=== PATIENT | female | born 1975 | race Asian ===

== ENCOUNTER 2016-08-26 06:08 | Inpatient (IN) | payer OTHER ==
[2016-08-26] MEDS ORDERED: OXYTOCIN/RINGERS LACTATE 1,000 ML IV PRN (06:33)
[2016-08-26] MEDS ORDERED: LR 1,000 ML IV PRN (06:33)
[2016-08-26] MEDS ORDERED: LR 500 ML IV PRN (06:33)
[2016-08-26] MEDS ORDERED: TERBUTALINE SULFATE 1 MG/ML VIAL IV PRN (06:33)
[2016-08-26] MEDS ORDERED: OXYTOCIN/RINGERS LACTATE 500 ML IV SCH (07:00)
[2016-08-26 07:04] LABS: % IMMATURE GRANULYOCYTES 0.4 % (0.0-1.1); ABSOLUTE IMMATURE GRANULOCYTES 0.03 10^3/uL (0.00-0.10); ADD DIFF? NO; ADD MORPH? NO; ADD SCAN? NO; ATYPICAL LYMPHOCYTE FLAG 0 (0-99); FRAGMENT RBC FLAG 0 (0-99); HEMATOCRIT 38.2 % (38.0-47.0); LEFT SHIFT FLG 0 (0-99); LIPEMIA HEMOLYSIS FLAG 90 (0-99); MEAN CELL HEMOGLOBIN 31.2 pg (27.9-34.1); MEAN CELL VOLUME 91.6 fL (81.5-99.8); MEAN PLATELET VOLUME 11.9 fL (8.7-11.7); PLATELET CLUMPS FLAG 0 (0-99); PLATELET COUNT 183 10^3/uL (150-400); RED BLOOD CELL COUNT 4.17 10^6/uL (4.18-5.33); RED CELL DISTRIBUTION WIDTH 13.1 % (11.5-15.2)
--- NOTE | 2016-08-26 08:50 | OBPROG ---
OBG Progress Note Assessment/Plan: Assessment: 40 yo @ 38 weeks, IOL for A2GDM, doing well. Plan: 08/26/16 08:48 FWB reassuring. GBS neg. [id number] sugar 110 this am after light breakfast, will monitor and administer insulin as needed. Subjective: 40 yo @ 38 weeks, IOL for A2GDM, doing well. Objective: 08/26/16 06:25 Patient ABO/Rh O POSITIVE 08/26/16 06:25 110/64 88 16 36.9 Current Contraction Pattern: Irregular FHR (bpm): 130 FHR Pattern Variability: Moderate FHR Category: 2 ICD10 Worksheet Patient Problems: Problems Problem Status Onset demise, greater than 22 weeks, antepartum Acute
[2016-08-26] MEDS ORDERED: LIDOCAINE 1% 30 ML SDV ONE (10:03)
[2016-08-26] MEDS ORDERED: MISOPROSTOL 200 MCG TAB ONE (10:04)
[2016-08-26] MEDS ORDERED: AMMONIA AROMATIC 1 EACH AMP IH ONE ×2 (10:04→10:05)
[2016-08-26] MEDS ORDERED: TERBUTALINE SULFATE 1 MG/ML VIAL ONE (10:04)
[2016-08-26] MEDS ORDERED: OXYTOCIN 10 UNIT/ML VIAL ONE (10:04)
[2016-08-26] MEDS ORDERED: ceFAZolin 2 GM/DEXTROSE 100 ML IV ONE (12:58)
[2016-08-26] MEDS ORDERED: LR 500 ML IV ONE (12:58)
[2016-08-26] MEDS ORDERED: LR 1,000 ML IV SCH (13:00)
--- NOTE | 2016-08-26 13:07 | OBPROG ---
OBG Progress Note Assessment/Plan: Assessment: 40 yo @ 38 weeks, IOL for A2GDM, contractions more painful, fetus is breech. Plan: FWB reassuring. GBS neg. [id number] sugar 74 this am after light breakfast. Fetus was vtx last week, breech now (likely due to polyhydramnios), recommend delivery with the risks of bleeding, blood transfusion, infection, damage to the bowel, bladder, uterus, ovaries, blood vessels, nerves. Patient understands these risks and agrees to the procedure. Subjective: 40 yo @ 38 weeks, IOL for A2GDM, contractions more painful. Objective: 08/26/16 06:25 Patient ABO/Rh O POSITIVE 08/26/16 06:25 - SVE Dilation (cm): 1 (fetus very high station, not engaged in pelvis, US confirms breech) Effacement (%): 50 Station: -3 Current Contraction Pattern: Regular FHR (bpm): 130 ICD10 Worksheet Patient Problems: Problems Problem Status Onset Gestational diabetes mellitus (GDM) affecting second Acute demise, greater than 22 weeks, antepartum Acute
[2016-08-26] MEDS ORDERED: HYDROCODONE/APAP 5/325 TAB PO PRN (13:08)
[2016-08-26] MEDS ORDERED: PROMETHAZINE HCL 25 MG/ML INJ IVP PRN (13:08)
[2016-08-26] MEDS ORDERED: SIMETHICONE 80 MG TAB CHEW PO PRN (13:08)
[2016-08-26] MEDS ORDERED: morphINE PF 5 MG/10 ML INJ ONE (13:26)
[2016-08-26] MEDS ORDERED: fentaNYL 100 MCG/2 ML INJ ONE (13:27)
[2016-08-26] MEDS ORDERED: OXYTOCIN 100 UNITS/10 ML VIAL ONE (13:37)
[2016-08-26] MEDS ORDERED: ONDANSETRON 4 MG/2 ML VIAL ONE ×3 (13:37)
[2016-08-26] MEDS ORDERED: PHENYLEPHRINE HCL 100 MCG/ML SYR ONE ×3 (13:40→13:43)
--- NOTE | 2016-08-26 14:45 | OBPROC ---
- Delivery Pre-op Diagnoses: Breech presentation Post-op Diagnoses: variable presentation Procedure: Primary Surgeon: Sybil Thurman Children'S Aide: Kayla Gauthier Anesthesiologist: Juvencio Blair [employer] Fire Control Man/MANAGER INTEGRATION: Adri Edouard Anesthesia: Spinal Complications: None Specimen(s)/Path: Placenta IV Fluid (ml): 1,800 EBL: 800 - [place] Info A Delivery Date: 08/26/16 Delivery Time: 14:25 Sex of Infant: Female Score (1 Min): 8 Score (5 Min): 8
[2016-08-26] MEDS ORDERED: KETOROLAC 30 MG/1 ML SDV ONE (17:04)
[2016-08-26] MEDS: KETOROLAC 30 MG/1 ML SDV IVP SCH ×2 (17:06→23:00)
--- NOTE | 2016-08-26 19:09 | GOP ---
DATE OF OPERATION: 08/26/2016 SURGEON: Sybil Gr MD DAMPER WORKER: Kayla Gauthier CNM ANESTHESIA: Spinal. PREOPERATIVE DIAGNOSIS: 1. Breech presentation. 2. A2 gestational diabetes. POSTOPERATIVE DIAGNOSIS: 1. Vtx presentation. 2. A2 gestational diabetes. PROCEDURE PERFORMED: Primary low transverse section. FINDINGS: Viable female , Apgars 8 and 8 in vertex presentation. Copious amniotic fluid. Normal uterus, fallopian tubes, and ovaries. SPECIMENS: None. ESTIMATED BLOOD LOSS: 800 mL. INDICATIONS: The patient is a 40-year-old female who is being induced at 38 weeks' gestation for A2 gestational diabetes per [facility] recommendations, who was noted to be vertex last week; however, during the course of this labor, fetus was found to be in breech presentation during one of her cervical exams and recommended proceeding to delivery secondary to breech presentation to which patient agreed. By the time the uterine incision was made, this infant was back in vertex presentation, this was complicated by polyhydramnios. DESCRIPTION OF PROCEDURE: The patient was taken to the operating room where she was prepped and draped in normal sterile fashion in the dorsal supine position with a leftward tilt. A surgical time-out was performed, verifying the patient's name, date of , planned procedure, and site. The patient received 2 gm of Ancef preoperatively. A Pfannenstiel skin incision was made with a scalpel and carried through to the underlying fascia. The fascia was incised in the midline and extended laterally. The superior aspect of the fascia was grasped with Ever clamps. The rectus muscles were dissected off bluntly and with the Bovie cautery. The inferior aspect of the fascia was grasped with a Ever clamp. The rectus muscles were dissected off bluntly and with the Bovie cautery. The peritoneum was identified and entered in bluntly. The peritoneum was divided. The bladder blade was placed. The vesicouterine peritoneum was incised with the Metzenbaum scissors, and a bladder flap was created digitally. The bladder blade was replaced. The uterus was incised with a scalpel, and the uterine incision was extended laterally. The was delivered. The cord was clamped and cut. Cord blood was obtained. The was handed to the nurse practitioner. The placenta was delivered spontaneously. Uterus was exteriorized and cleared of all clots and debris. The uterine incision was reapproximated with 0 Monocryl in a running locked fashion in 2 layers. The uterus was returned to the abdomen. The gutters were cleared of all clots and debris. The uterine incision was reinspected and noted to be hemostatic. The subfascial spaces were inspected and noted to be hemostatic. The fascia was reapproximated with 0 Vicryl in a running fashion, and the skin was closed with a 4-0 Monocryl. All counts were correct x2. COMPLICATIONS: None. OUTCOME: Stable to recovery room. /[id number]/MODL MTDD
[2016-08-27] MEDS: KETOROLAC 30 MG/1 ML SDV IVP SCH ×2 (05:58→12:01)
--- NOTE | 2016-08-27 08:29 | SOAPPROG ---
SOAP Progress Note Assessment/Plan: Assessment: 40 yo s/p ltcs for variable presentation (breech during labor, vtx at time of c/s), pod 1, doing well. Plan: Routine postop care. Rubella immune, rh +, Continue synthroid, will check with inbound sales advisor for new dose. Home on Thursday. Objective: Vital Signs Temp Pulse Resp BP Pulse Ox 37.7 C 86 18 102/54 L 98 08/27/16 04:00 08/27/16 04:00 08/27/16 04:00 08/27/16 04:00 08/27/16 06:00 Laboratory Results 08/27/16 06:10 08/26/16 08/27/16 08/28/16 05:59 05:59 05:59 Intake Total 1000 Output Total 2200 350 Balance -2200 650 ICD10 Worksheet Patient Problems: Problems Problem Status Onset Breech presentation of fetus Acute Gestational diabetes mellitus (GDM) affecting second Acute demise, greater than 22 weeks, antepartum Acute
[2016-08-27] MEDS: DOCUSATE SODIUM 100 MG CAP PO PRN (09:41)
[2016-08-27] MEDS: OXYCODONE/APAP 5/325 TAB PO PRN ×3 (14:54→23:01)
[2016-08-27] MEDS: IBUPROFEN 600 MG TAB PO PRN (18:12)
[2016-08-27 20:59] VITALS: RESP 16
[2016-08-28] MEDS: IBUPROFEN 600 MG TAB PO PRN ×4 (02:46→21:31)
[2016-08-28] MEDS: LEVOTHYROXINE 125 MCG TAB PO SCH (05:53)
[2016-08-28] MEDS: OXYCODONE/APAP 5/325 TAB PO PRN ×5 (05:56→23:03)
--- NOTE | 2016-08-28 08:19 | SOAPPROG ---
SOAP Progress Note Assessment/Plan: Assessment: 40 yo s/p ltcs for variable presentation (breech during labor, vtx at time of c/s), pod 2, doing well. Plan: Routine postop care. Rubella immune, rh +, Continue synthroid, will check with rebar fabricator for new dose. Home on Thursday. 08/28/16 08:19 Subjective: 40 yo s/p ltcs for variable presentation (breech during labor, vtx at time of c/s), pod 2, doing well. Objective: Vital Signs Temp Pulse Resp BP Pulse Ox 37 C 74 16 101/63 94 08/28/16 04:30 08/28/16 04:30 08/28/16 04:30 08/28/16 04:30 08/28/16 04:30 Laboratory Results 08/27/16 06:10 08/27/16 08/28/16 08/29/16 05:59 05:59 05:59 Intake Total 1000 Output Total 2200 2400 Balance -2200 -1400 Physical Exam - Physical Exam General Appearance: no apparent distress Respiratory: lungs clear Cardiac/Chest: regular rate, rhythm Abdomen: non-tender Skin: warm/dry Extremities: non-tender Neuro/Psych: oriented x 3 ICD10 Worksheet Patient Problems: Problems Problem Status Onset Breech presentation of fetus Acute Gestational diabetes mellitus (GDM) affecting second Acute demise, greater than 22 weeks, antepartum Acute
[2016-08-28] MEDS: DOCUSATE SODIUM 100 MG CAP PO PRN ×2 (09:42→23:03)
[2016-08-29] MEDS: IBUPROFEN 600 MG TAB PO PRN ×2 (04:57→11:16)
[2016-08-29] MEDS: OXYCODONE/APAP 5/325 TAB PO PRN ×2 (04:58→11:16)
[2016-08-29] MEDS: LEVOTHYROXINE 125 MCG TAB PO SCH (05:03)
[2016-08-29] MEDS: DOCUSATE SODIUM 100 MG CAP PO PRN (05:14)
--- NOTE | 2016-08-29 07:39 | OBGCSDC ---
General Delivery Information - General Info : 2 Para: 1 Delivery Date: 08/26/16 Delivery Physician/CNM: Sybil Thurman Energy Conservation Director: Kayla Gauthier Admission Date: 08/25/16 Labs: Patient ABO/Rh O POSITIVE 08/26/16 06:25 Hct 30.9 % (38.0-47.0) L 08/27/16 06:10 - Info Infant A Sex of : Female Score (1 Min): 8 Score (5 Min): 8 - Delivery IUP (Weeks): 38 Number of Prior Sections: 0 Indications for Current Section: Abnormal Lie Procedures: LTCS Intra-op Complications: None EBL: 800 Anesthesia: Spinal Discharge Information - Discharge Information Discharge Medications: Ibuprofen, Iron, Vitamins, Vicodin Condition: Good Instruction/Follow Up: Two Weeks Discharge Physician/CNM: Kayla Gauthier Discharge Date: 08/29/16 Dictated: No
[2016-08-29 08:14] VITALS: BP 96/67; PULSE 66; TEMP 98.7; O2SAT 93
== END 2016-08-29 15:00 | disposition home or self-care (01) | DRG 766 ==
LOC: FLD 06:08 → FOB 17:28
PROVIDERS: ADMIT Midwife; ATTEND Obstetrics & Gynecology
PROC: 10D00Z1 Extraction of Products of Conception, Low, Open Approach (ICD-10-PCS; principal; 2016-08-26)
DX: O32.1XX1 Maternal care for breech presentation, fetus 1 (principal); O24.415 Gestational diabetes mellitus in pregnancy, controlled by oral hypoglycemic drugs; O09.43 Supervision of pregnancy with grand multiparity, third trimester; Z37.0 Single live birth; Z3A.38 38 weeks gestation of pregnancy
CPT/HCPCS: J0690; J1885; J2274; J2370; J2405; J2590; J3010; J3105